=== PATIENT | female | born 1980 | race Two or more races ===

== ENCOUNTER 2022-08-25 13:16 | Emergency (ER) | payer BC, OTHER, SELFPAY ==
[2022-08-25] MEDS ORDERED: Iopamidol 755 Mg/ML 100 ML Bottle IVPUSH ONE (13:59)
[2022-08-25] MEDS ORDERED: Sodium Chloride 0.9% 100 ML IV SCH (14:00)
[2022-08-25] MEDS: Sodium Chloride 0.9% 10 ML Syringe FLUSH PRN ×2 (14:15→14:20)
[2022-08-25 15:12] LABS: APPEARANCE,URINE CLEAR (Clear); BILIRUBIN,URINE NEGATIVE (Negative); COLOR,URINE YELLOW (Yellow); GLUCOSE,URINE NEGATIVE (Negative); KETONES,URINE NEGATIVE (Negative); LEUKOCYTE ESTERASE,URINE NEGATIVE (Negative); NITRITE,URINE NEGATIVE (Negative); OCCULT BLOOD,URINE NEGATIVE (Negative); PROTEIN,URINE 2+ (Negative); UROBILINOGEN,URINE 0.2 (0.2-1.0)
[2022-08-25] MEDS ORDERED: LORazepam 2 MG/ML SDV IVPUSH ONE (15:24)
[2022-08-25 15:29] LABS: BACTERIA,URINE MANY /hpf (FEW); HYALINE CASTS,URINE 0-5 /lpf (0-5); RBC,URINE 0-5 /hpf (0-5); SQUAMOUS EPITHELIAL CELLS,UR 0-5 /hpf (0-5); WBC,URINE 0-5 /hpf (0-5)
[2022-08-25 15:30] LABS: MUCUS,URINE NOT SEEN /hpf (FEW)
[2022-08-25 16:49] VITALS: BP 128/74; PULSE 94
== END 2022-08-25 16:29 | disposition home or self-care (01) ==
LOC: JD.ED 13:16
DX: S09.90XA Unspecified injury of head, initial encounter (principal); R40.4 Transient alteration of awareness; M54.2 Cervicalgia; R00.0 Tachycardia, unspecified; W22.8XXA Striking against or struck by other objects, initial encounter
CPT/HCPCS: 70450; 70498; 72125; 81001; 93005; 96374; 99285; J2060; J3490; Q9967; 93010; 99284